=== PATIENT | male | born 2000 | race Caucasian/White ===

== ENCOUNTER 2021-09-21 22:09 | Emergency (ER) | payer OTHER ==
[2021-09-21 22:49] VITALS: BMI 32.5
[2021-09-21] MEDS ORDERED: MAG HYDROX/AL HYDROX/SIMETH -MYLANTA- ORAL SUSPENSION PO ONE (22:53)
[2021-09-21] MEDS ORDERED: FAMOTIDINE 20 MG/50 ML IVPB 20 MG/50 ML MG IVPB ONE (22:53)
[2021-09-21] MEDS ORDERED: SODIUM CHLORIDE 0.9% 1000 ML INFUS.BAG IV ONE (22:53)
[2021-09-21] MEDS ORDERED: ONDANSETRON 4 MG/2 ML VIAL IVPUSH ONE (23:08)
[2021-09-21] MEDS ORDERED: ACETAMINOPHEN INJECTION 100 ML IVPB ONE (23:45)
[2021-09-22 00:49] LABS: ALBUMIN 4.9 g/dl (3.4-5.0); CALCIUM 9.8 mg/dL (8.5-10.1)
[2021-09-22 00:52] LABS: CREATININE 1.2 mg/dL (0.55-1.3)
[2021-09-22 00:55] LABS: BILIRUBIN,TOTAL 0.5 mg/dL (0.2-1); TOT PROT 8.4 g/dl (6.4-8.2)
[2021-09-22 00:57] LABS: BASO % 0.2 % (0-2.0); EOS % 0.3 % (0-4.5); HEMATOCRIT 41.9 % (35.4-49); HEMOGLOBIN 14.1 GM/dL (11.7-16.9); LYMPH % 5.3 % (8-40); MCH 29.9 pg (25.7-33.7); MCHC 33.7 g/dl (32.0-35.9); MEAN CELL VOLUME 88.7 fl (80-96); MEAN PLT VOLUME 10.2 fl (7.5-11.1); MONO % 3.3 % (3.8-10.2); NEUT % 90.9 % (42.8-82.8); PLATELET COUNT 242 10^3/uL (134-434); RBC 4.72 M/mm3 (4.00-5.60); RDW 13.4 % (11.9-15.9); WHITE BLOOD COUNT 17.3 K/mm3 (4.0-10.0)
[2021-09-22 03:21] VITALS: BP 145/80; PULSE 82
== END 2021-09-22 03:26 | disposition home or self-care (01) ==
LOC: JER 22:09 → EDBD 22:09 → JER 09-22 03:26
PROC: 3E033NZ Introduction of Analgesics, Hypnotics, Sedatives into Peripheral Vein, Percutaneous Approach (ICD-10-PCS; principal; 2021-09-21)
PROC: 3E033GC Introduction of Other Therapeutic Substance into Peripheral Vein, Percutaneous Approach (ICD-10-PCS; 2021-09-21)
DX: R11.2 Nausea with vomiting, unspecified (principal); R10.9 Unspecified abdominal pain; F12.20 Cannabis dependence, uncomplicated
CPT/HCPCS: 36415; 80053; 83690; 85025; 93005; 93010; 99284-25

== ENCOUNTER 2022-02-28 12:46 | Day surgery (SDC) | payer OTHER ==
[2022-02-27 12:06] VITALS: BMI 32.5
[2022-02-28] MEDS ORDERED: PROPOFOL 20 ML ONE (13:39)
[2022-02-28 14:11] VITALS: BP 100/54; PULSE 70; TEMP 97.8
== END 2022-02-28 14:23 | disposition home or self-care (01) ==
LOC: FASU 12:46
PROVIDERS: ATTEND Internal Medicine Gastroenterology
PROC: 0DB68ZX Excision of Stomach, Via Natural or Artificial Opening Endoscopic, Diagnostic (ICD-10-PCS; 2022-02-28)
PROC: 0DB48ZX Excision of Esophagogastric Junction, Via Natural or Artificial Opening Endoscopic, Diagnostic (ICD-10-PCS; 2022-02-28)
PROC: 0DB98ZX Excision of Duodenum, Via Natural or Artificial Opening Endoscopic, Diagnostic (ICD-10-PCS; principal; 2022-02-28 13:36)
DX: K29.50 Unspecified chronic gastritis without bleeding (principal); K20.90 Esophagitis, unspecified without bleeding; R10.13 Epigastric pain
CPT/HCPCS: 88305-TC

== ENCOUNTER 2023-05-19 13:51 | Emergency (ER) | payer OTHER ==
[2023-05-19 14:00] VITALS: RESP 20; TEMP 98.3; BMI 35.3
[2023-05-19] MEDS ORDERED: ONDANSETRON *ODT* 4 MG TABLET SL ONE (15:14)
[2023-05-19] MEDS ORDERED: SODIUM CHLORIDE 0.9% 1000 ML INFUS.BAG IV ONE (15:15)
[2023-05-19] MEDS ORDERED: ONDANSETRON *ODT* 4 MG TABLET ONE (15:33)
[2023-05-19 16:54] LABS: BASO % 0.3 % (0-2.0); EOS % 0.5 % (0-4.5); HEMATOCRIT 44.8 % (35.4-49); HEMOGLOBIN 14.8 GM/dL (11.7-16.9); LYMPH % 13.7 % (8-40); MCH 29.2 pg (25.7-33.7); MCHC 32.9 g/dl (32.0-35.9); MEAN CELL VOLUME 88.8 fl (80-96); MEAN PLT VOLUME 10.4 fl (7.5-11.1); MONO % 7.9 % (3.8-10.2); NEUT % 77.6 % (42.8-82.8); PLATELET COUNT 263 10^3/uL (134-434); RBC 5.05 M/mm3 (4.00-5.60); RDW 13.5 % (11.9-15.9); WHITE BLOOD COUNT 11.7 K/mm3 (4.0-10.0)
[2023-05-19 17:02] LABS: POTASSIUM 3.8 mmol/L (3.5-5.1)
[2023-05-19 17:04] LABS: CALCIUM 10.3 mg/dL (8.5-10.1)
[2023-05-19 17:05] LABS: ALBUMIN 4.5 g/dl (3.4-5.0); BLOOD UREA NITROGEN 8.6 mg/dL (7-18)
[2023-05-19 17:09] LABS: BILIRUBIN,TOTAL 0.9 mg/dL (0.2-1)
[2023-05-19 17:55] VITALS: BP 139/76; PULSE 56
[2023-05-19 18:00] LABS: EPI CELLS 22 /uL (0-25.1); HYALINE CASTS 7 /uL (0-3.1); URINE APPEARANCE CLEAR; URINE BACTERIA 15 /uL (0-1359); URINE BILIRUBIN 1+ (NEGATIVE); URINE COLOR DK YELLOW; URINE GLUCOSE (UA) NEGATIVE (NEGATIVE); URINE KETONE 3+ (NEGATIVE); URINE LEUK ESTERASE NEGATIVE (NEGATIVE); URINE NITRITE NEGATIVE (NEGATIVE); URINE PROTEIN 1+ (NEGATIVE); URINE RBC 16 /uL (0-23.9); URINE WBC 49 /uL (0-25.8)
== END 2023-05-19 19:12 | disposition home or self-care (01) ==
LOC: JER 13:51
DX: R11.2 Nausea with vomiting, unspecified (principal); R53.83 Other fatigue; F12.988 Cannabis use, unspecified with other cannabis-induced disorder
CPT/HCPCS: 36415; 80053; 80178; 81003; 85025; 99283-25; Q0162

== ENCOUNTER 2023-10-05 12:48 | Emergency (ER) | payer OTHER ==
[2023-10-05 13:15] VITALS: BP 172/83; PULSE 77; RESP 19; TEMP 98.5; BMI 35.9
[2023-10-05] MEDS ORDERED: ACETAMINOPHEN 1000 MG/100 ML BAG IVPB ONE (14:34)
[2023-10-05] MEDS ORDERED: METOCLOPRAMIDE HCL INJECTION 10 MG/2 ML VIAL IVPUSH ONE (14:34)
[2023-10-05] MEDS ORDERED: LACTATED RINGERS SOLUTION 1000 ML INFUS.BAG IV ONE (14:34)
[2023-10-05] MEDS ORDERED: METOCLOPRAMIDE HCL INJECTION 10 MG/2 ML VIAL ONE (14:39)
[2023-10-05] MEDS ORDERED: ACETAMINOPHEN INJECTION 100 ML IVPB ONE (14:39)
[2023-10-05] MEDS ORDERED: FAMOTIDINE 20 MG/50 ML IVPB 20 MG/50 ML MG IVPB ONE ×2 (14:39→16:42)
[2023-10-05 15:11] LABS: BASO % 0.3 % (0-2.0); EOS % 0.8 % (0-4.5); HEMATOCRIT 48.6 % (35.4-49); HEMOGLOBIN 15.8 GM/dL (11.7-16.9); LYMPH % 12.4 % (8-40); MCH 28.6 pg (25.7-33.7); MCHC 32.5 g/dl (32.0-35.9); MEAN CELL VOLUME 88.1 fl (80-96); MEAN PLT VOLUME 9.4 fl (7.5-11.1); NEUT % 79.5 % (42.8-82.8); PLATELET COUNT 272 10^3/uL (134-434); RBC 5.51 M/mm3 (4.00-5.60); RDW 13.2 % (11.9-15.9); WHITE BLOOD COUNT 12.9 K/mm3 (4.0-10.0)
[2023-10-05 15:21] LABS: POTASSIUM 3.4 mmol/L (3.5-5.1)
[2023-10-05 15:24] LABS: CALCIUM 10.3 mg/dL (8.5-10.1)
[2023-10-05 15:25] LABS: ALBUMIN 4.7 g/dl (3.4-5.0); BLOOD UREA NITROGEN 6.3 mg/dL (7-18); MAGNESIUM 2.4 mg/dL (1.8-2.4)
[2023-10-05 15:28] LABS: CREATININE 1.1 mg/dL (0.55-1.3)
[2023-10-05 15:29] LABS: BILIRUBIN,TOTAL 0.9 mg/dL (0.2-1); TOT PROT 8.3 g/dl (6.4-8.2)
[2023-10-05] MEDS ORDERED: ONDANSETRON 4 MG/2 ML VIAL IVPUSH ONE (16:16)
[2023-10-05] MEDS ORDERED: ONDANSETRON 4 MG/2 ML VIAL ONE (16:42)
== END 2023-10-05 17:36 | disposition home or self-care (01) ==
LOC: JER 12:48
PROC: 3E033GC Introduction of Other Therapeutic Substance into Peripheral Vein, Percutaneous Approach (ICD-10-PCS; principal; 2023-10-05)
PROC: 3E033NZ Introduction of Analgesics, Hypnotics, Sedatives into Peripheral Vein, Percutaneous Approach (ICD-10-PCS; 2023-10-05)
PROC: 3E033GC Introduction of Other Therapeutic Substance into Peripheral Vein, Percutaneous Approach (ICD-10-PCS; 2023-10-05)
PROC: 3E033GC Introduction of Other Therapeutic Substance into Peripheral Vein, Percutaneous Approach (ICD-10-PCS; 2023-10-05)
DX: R11.2 Nausea with vomiting, unspecified (principal); R10.13 Epigastric pain
CPT/HCPCS: 36415; 80053; 83690; 83735; 85025; 99284-25

== ENCOUNTER 2023-10-08 12:31 | Emergency (ER) | payer OTHER ==
[2023-10-08 12:41] VITALS: BP 134/79; PULSE 75; RESP 18; TEMP 98; BMI 35.9
[2023-10-08] MEDS ORDERED: SODIUM CHLORIDE 1,000 ML IV STA (13:27)
[2023-10-08] MEDS ORDERED: ONDANSETRON 4 MG/2 ML VIAL IVPUSH ONE (13:27)
[2023-10-08] MEDS ORDERED: ONDANSETRON 4 MG/2 ML VIAL ONE (13:29)
[2023-10-08 14:02] LABS: BASO % 0.4 % (0-2.0); EOS % 0.9 % (0-4.5); LYMPH % 14.4 % (8-40); MCH 28.6 pg (25.7-33.7); MCHC 32.6 g/dl (32.0-35.9); MEAN CELL VOLUME 87.8 fl (80-96); MONO % 9.7 % (3.8-10.2); NEUT % 74.6 % (42.8-82.8); PLATELET COUNT 245 10^3/uL (134-434); RBC 5.24 M/mm3 (4.00-5.60); RDW 13.3 % (11.9-15.9); WHITE BLOOD COUNT 12.3 K/mm3 (4.0-10.0)
[2023-10-08 14:07] LABS: EPI CELLS 25 /uL (0-25.1); HYALINE CASTS 7 /uL (0-3.1); PH,URINE 5.5 (5.0-8.0); URINE APPEARANCE CLOUDY; URINE BACTERIA 43 /uL (0-1359); URINE BILIRUBIN 1+ (NEGATIVE); URINE COLOR DK YELLOW; URINE GLUCOSE (UA) NEGATIVE (NEGATIVE); URINE KETONE TRACE (NEGATIVE); URINE LEUK ESTERASE TRACE (NEGATIVE); URINE NITRITE NEGATIVE (NEGATIVE); URINE PROTEIN 1+ (NEGATIVE); URINE RBC 25 /uL (0-23.9); URINE WBC 59 /uL (0-25.8)
[2023-10-08 14:15] LABS: POTASSIUM 3.1 mmol/L (3.5-5.1)
[2023-10-08 14:17] LABS: ALBUMIN 4.5 g/dl (3.4-5.0); CALCIUM 9.9 mg/dL (8.5-10.1)
[2023-10-08 14:22] LABS: BILIRUBIN,TOTAL 0.8 mg/dL (0.2-1); TOT PROT 7.7 g/dl (6.4-8.2)
[2023-10-08 14:26] LABS: BLOOD UREA NITROGEN 7.1 mg/dL (7-18)
== END 2023-10-08 17:54 | disposition home or self-care (01) ==
LOC: JER 12:31
PROC: 3E033GC Introduction of Other Therapeutic Substance into Peripheral Vein, Percutaneous Approach (ICD-10-PCS; principal; 2023-10-08)
PROC: 3E0337Z Introduction of Electrolytic and Water Balance Substance into Peripheral Vein, Percutaneous Approach (ICD-10-PCS; 2023-10-08)
DX: K52.9 Noninfective gastroenteritis and colitis, unspecified (principal); R11.2 Nausea with vomiting, unspecified; R63.8 Other symptoms and signs concerning food and fluid intake; R10.9 Unspecified abdominal pain
CPT/HCPCS: 36415; 74177-TC; 80053; 81003; 83690; 85025; 87086; 99285-25; Q9967

== ENCOUNTER 2024-02-19 22:26 | Observation (INO) | payer OTHER ==
[2024-02-19 22:42] VITALS: BMI 35.9
[2024-02-19] MEDS ORDERED: HALOPERIDOL LACTATE 5 MG/ML ONE (23:57)
[2024-02-19] MEDS ORDERED: ACETAMINOPHEN INJECTION 100 ML IVPB ONE (23:58)
[2024-02-19] MEDS ORDERED: FAMOTIDINE 20 MG/50 ML IVPB 20 MG/50 ML MG IVPB ONE (23:58)
[2024-02-20 00:01] LABS: BASO % 0.5 % (0-2.0); EOS % 0.8 % (0-4.5); HEMATOCRIT 41.3 % (35.4-49); HEMOGLOBIN 13.7 GM/dL (11.7-16.9); LYMPH % 13.8 % (8-40); MCH 29.2 pg (25.7-33.7); MCHC 33.2 g/dl (32.0-35.9); MEAN CELL VOLUME 87.9 fl (80-96); MEAN PLT VOLUME 9.4 fl (7.5-11.1); NEUT % 75.9 % (42.8-82.8); PLATELET COUNT 213 10^3/uL (134-434); RDW 13.7 % (11.9-15.9); WHITE BLOOD COUNT 15.2 K/mm3 (4.0-10.0)
[2024-02-20] MEDS: FAMOTIDINE 20 MG/50 ML IVPB 20 MG/50 ML MG IVPB ONE (00:10)
[2024-02-20] MEDS: ACETAMINOPHEN 1000 MG/100 ML BAG IVPB ONE (00:10)
[2024-02-20] MEDS: SODIUM CHLORIDE 0.9% 500 ML INFUS.BAG IV ONE (00:10)
[2024-02-20] MEDS: HALOPERIDOL LACTATE 5 MG/ML IVPUSH ONE (00:10)
[2024-02-20 00:20] LABS: ALBUMIN 4.1 g/dl (3.4-5.0); BLOOD UREA NITROGEN 7.4 mg/dL (7-18); CALCIUM 9.2 mg/dL (8.5-10.1); MAGNESIUM 2.1 mg/dL (1.8-2.4)
[2024-02-20 00:23] LABS: CREATININE 0.9 mg/dL (0.55-1.3); PHOSPHOROUS 3.1 mg/dL (2.5-4.9)
[2024-02-20 00:25] LABS: BILIRUBIN,TOTAL 0.8 mg/dL (0.2-1); TOT PROT 7.1 g/dl (6.4-8.2)
[2024-02-20] MEDS ORDERED: MAGNESIUM SULFATE IN WATER 2 GM/50 ML IVPB IVPB ONE (01:34)
[2024-02-20] MEDS: MAGNESIUM SULF 50% (8.12 MEQ/2 ML-1 GM VIAL) IVPB ONE (01:34)
[2024-02-20] MEDS: KCL 10 MEQ IVPB 10 MEQ/100 ML INFUS.BAG IVPB SCH (04:20)
[2024-02-20] MEDS ORDERED: KCL 10 MEQ IVPB 10 MEQ/100 ML INFUS.BAG IVPB ONE ×2 (04:20→05:05)
[2024-02-20] MEDS: D5-1/2NS+20 MEQ KCL - 20 MEQ/1,000 ML INFUS.BAG IV SCH (06:05)
[2024-02-20] MEDS ORDERED: ACETAMINOPHEN 1000 MG/100 ML BAG IVPB PRN (06:40)
[2024-02-20] MEDS: TRIMETHOBENZAMIDE HCL 200MG/2ML INJ IM PRN (12:40)
[2024-02-20] MEDS: ONDANSETRON 4 MG/2 ML VIAL IVPUSH ONE (13:58)
[2024-02-20] MEDS: METOCLOPRAMIDE HCL 10 MG TABLET (FP) PO STA (18:12)
[2024-02-20] MEDS: ONDANSETRON 4 MG/2 ML VIAL IVPUSH PRN (19:40)
[2024-02-20 20:05] LABS: BASO % 0.5 % (0-2.0); EOS % 1.5 % (0-4.5); HEMATOCRIT 42.2 % (35.4-49); HEMOGLOBIN 13.9 GM/dL (11.7-16.9); LYMPH % 14.5 % (8-40); MCH 29.2 pg (25.7-33.7); MEAN CELL VOLUME 88.7 fl (80-96); MEAN PLT VOLUME 9.7 fl (7.5-11.1); NEUT % 75.5 % (42.8-82.8); PLATELET COUNT 212 10^3/uL (134-434); RBC 4.76 M/mm3 (4.00-5.60); RDW 13.7 % (11.9-15.9); WHITE BLOOD COUNT 13.4 K/mm3 (4.0-10.0)
[2024-02-20] MEDS: OLANZapine 10 MG TABLET PO SCH (21:52)
[2024-02-20] MEDS: LITHIUM CARBONATE 300 MG CAPSULE PO SCH (21:52)
[2024-02-21] MEDS ORDERED: ACETAMINOPHEN 325 MG TABLET (FP) PO PRN (06:40)
[2024-02-21 08:36] LABS: BASO % 0.3 % (0-2.0); EOS % 1.8 % (0-4.5); HEMATOCRIT 41.8 % (35.4-49); HEMOGLOBIN 14.3 GM/dL (11.7-16.9); LYMPH % 13.3 % (8-40); MCHC 34.3 g/dl (32.0-35.9); MEAN CELL VOLUME 87.5 fl (80-96); MONO % 8.5 % (3.8-10.2); NEUT % 76.1 % (42.8-82.8); PLATELET COUNT 211 10^3/uL (134-434); RBC 4.78 M/mm3 (4.00-5.60); RDW 13.2 % (11.9-15.9)
[2024-02-21 08:40] LABS: POTASSIUM 3.6 mmol/L (3.5-5.1)
[2024-02-21 08:42] LABS: CALCIUM 9.2 mg/dL (8.5-10.1)
[2024-02-21 08:43] LABS: BLOOD UREA NITROGEN 6.5 mg/dL (7-18)
[2024-02-21 08:46] LABS: CREATININE 0.9 mg/dL (0.55-1.3)
[2024-02-21] MEDS: amLODIPine BESYLATE 2.5 MG TABLET (FP) PO ONE (23:01)
[2024-02-22 09:32] LABS: BASO % 0.3 % (0-2.0); EOS % 1.8 % (0-4.5); HEMATOCRIT 43.5 % (35.4-49); HEMOGLOBIN 14.6 GM/dL (11.7-16.9); LYMPH % 12.9 % (8-40); MCH 29.6 pg (25.7-33.7); MCHC 33.6 g/dl (32.0-35.9); MEAN CELL VOLUME 88.1 fl (80-96); MONO % 6.4 % (3.8-10.2); NEUT % 78.6 % (42.8-82.8); PLATELET COUNT 215 10^3/uL (134-434); RBC 4.94 M/mm3 (4.00-5.60); RDW 13.1 % (11.9-15.9); WHITE BLOOD COUNT 13.1 K/mm3 (4.0-10.0)
[2024-02-22 09:49] LABS: POTASSIUM 3.7 mmol/L (3.5-5.1)
[2024-02-22 09:53] LABS: BLOOD UREA NITROGEN 6.5 mg/dL (7-18); CALCIUM 9.4 mg/dL (8.5-10.1)
[2024-02-22 09:57] LABS: CREATININE 0.9 mg/dL (0.55-1.3); TOT PROT 7.2 g/dl (6.4-8.2)
[2024-02-22 09:58] LABS: BILIRUBIN,TOTAL 0.6 mg/dL (0.2-1)
[2024-02-22] MEDS: amLODIPine BESYLATE 2.5 MG TABLET (FP) PO SCH (15:37)
[2024-02-23 07:26] LABS: BASO % 0.3 % (0-2.0); EOS % 2.2 % (0-4.5); HEMATOCRIT 45.6 % (35.4-49); HEMOGLOBIN 15.1 GM/dL (11.7-16.9); LYMPH % 14.1 % (8-40); MCH 29.3 pg (25.7-33.7); MEAN CELL VOLUME 88.8 fl (80-96); MEAN PLT VOLUME 9.7 fl (7.5-11.1); MONO % 6.7 % (3.8-10.2); NEUT % 76.7 % (42.8-82.8); PLATELET COUNT 223 10^3/uL (134-434); RBC 5.14 M/mm3 (4.00-5.60); RDW 13.4 % (11.9-15.9); WHITE BLOOD COUNT 12.4 K/mm3 (4.0-10.0)
[2024-02-23 07:43] LABS: CALCIUM 9.6 mg/dL (8.5-10.1)
[2024-02-23 07:44] LABS: BLOOD UREA NITROGEN 6.5 mg/dL (7-18)
[2024-02-23 07:47] LABS: CREATININE 0.9 mg/dL (0.55-1.3)
[2024-02-23 07:49] LABS: BILIRUBIN,TOTAL 0.6 mg/dL (0.2-1); TOT PROT 7.2 g/dl (6.4-8.2)
[2024-02-23 12:55] LABS: N-TERMINAL BNP 24.7 pg/ml (5-125)
[2024-02-23 15:18] VITALS: BP 152/74; PULSE 81; RESP 19; TEMP 99
== END 2024-02-23 18:09 | disposition home or self-care (01) ==
LOC: JER 22:26 → JERBED 02-20 05:00 → J6S 02-20 07:32 → J4W 02-22 18:27
PROVIDERS: ADMIT Internal Medicine; ATTEND Internal Medicine
PROC: 3E033NZ Introduction of Analgesics, Hypnotics, Sedatives into Peripheral Vein, Percutaneous Approach (ICD-10-PCS; principal; 2024-02-20)
PROC: 3E033GC Introduction of Other Therapeutic Substance into Peripheral Vein, Percutaneous Approach (ICD-10-PCS; 2024-02-20)
PROC: 3E0337Z Introduction of Electrolytic and Water Balance Substance into Peripheral Vein, Percutaneous Approach (ICD-10-PCS; 2024-02-20)
PROC: 3E023GC Introduction of Other Therapeutic Substance into Muscle, Percutaneous Approach (ICD-10-PCS; 2024-02-20)
DX: R11.2 Nausea with vomiting, unspecified (principal); E87.6 Hypokalemia; F31.9 Bipolar disorder, unspecified; D72.829 Elevated white blood cell count, unspecified; R00.1 Bradycardia, unspecified; F17.210 Nicotine dependence, cigarettes, uncomplicated
CPT/HCPCS: 0241U-QW; 36415; 76705-TC; 80048; 80053; 80178; 82550; 82553; 83036; 83690; 83735; 83880; 84100; 84443; 84484; 85025; 86140; 86618; 93005; 93010; 93306-TC; 96361; 96365; 96367; 96372; 96375; 96376; 99284-25; 99285-25; G0378; J0131

== ENCOUNTER 2024-06-01 09:49 | Emergency (ER) | payer OTHER ==
[2024-06-01 09:55] VITALS: BP 149/60; PULSE 53; RESP 18; TEMP 98.2; BMI 35.9
[2024-06-01] MEDS ORDERED: ONDANSETRON *ODT* 4 MG TABLET ONE (10:22)
[2024-06-01] MEDS: ONDANSETRON *ODT* 4 MG TABLET SL ONE (10:33)
== END 2024-06-01 10:45 | disposition home or self-care (01) ==
LOC: JER 09:49
DX: R11.2 Nausea with vomiting, unspecified (principal); E86.0 Dehydration
CPT/HCPCS: 99283-25; Q0162

== ENCOUNTER 2024-06-06 00:46 | Emergency (ER) | payer OTHER ==
[2024-06-06 00:52] VITALS: TEMP 98.9; BMI 34.7
[2024-06-06] MEDS ORDERED: ONDANSETRON 4 MG/2 ML VIAL ONE (02:51)
[2024-06-06] MEDS: SODIUM CHLORIDE 0.9% 500 ML INFUS.BAG IV ONE (02:56)
[2024-06-06] MEDS: ONDANSETRON 4 MG/2 ML VIAL IVPUSH ONE (02:56)
[2024-06-06 03:11] LABS: BASO % 0.4 % (0-2.0); EOS % 0.7 % (0-4.5); HEMATOCRIT 40.5 % (35.4-49); HEMOGLOBIN 13.6 GM/dL (11.7-16.9); LYMPH % 9.6 % (8-40); MCH 29.3 pg (25.7-33.7); MCHC 33.6 g/dl (32.0-35.9); MEAN CELL VOLUME 87.3 fl (80-96); MEAN PLT VOLUME 9.7 fl (7.5-11.1); NEUT % 85.3 % (42.8-82.8); PLATELET COUNT 207 10^3/uL (134-434); RBC 4.64 M/mm3 (4.00-5.60); RDW 13.7 % (11.9-15.9); WHITE BLOOD COUNT 11.9 K/mm3 (4.0-10.0)
[2024-06-06 03:31] LABS: POTASSIUM 4.1 mmol/L (3.5-5.1)
[2024-06-06 03:33] LABS: ALBUMIN 4.3 g/dl (3.4-5.0); BLOOD UREA NITROGEN 7.5 mg/dL (7-18); CALCIUM 9.4 mg/dL (8.5-10.1)
[2024-06-06 03:37] LABS: CREATININE 0.9 mg/dL (0.55-1.3)
[2024-06-06 03:38] LABS: BILIRUBIN,TOTAL 0.5 mg/dL (0.2-1)
[2024-06-06 03:39] LABS: TOT PROT 7.1 g/dl (6.4-8.2)
[2024-06-06 04:53] VITALS: BP 120/53; PULSE 62; RESP 18
== END 2024-06-06 04:59 | disposition home or self-care (01) ==
LOC: JER 00:46
PROC: 3E033GC Introduction of Other Therapeutic Substance into Peripheral Vein, Percutaneous Approach (ICD-10-PCS; principal; 2024-06-06)
DX: R11.2 Nausea with vomiting, unspecified (principal); R10.13 Epigastric pain
CPT/HCPCS: 36415; 80053; 83690; 85025; 99284-25

== ENCOUNTER 2024-06-08 23:55 | Emergency (ER) | payer OTHER ==
[2024-06-09 00:06] VITALS: BP 160/78; PULSE 57; RESP 18; TEMP 98.4; BMI 34.7
[2024-06-09] MEDS ORDERED: METOCLOPRAMIDE HCL INJECTION 10 MG/2 ML VIAL ONE (00:39)
[2024-06-09] MEDS ORDERED: MAG HYDROX/AL HYDROX/SIMETH 30 ML UNIT-DOSE CUP ONE (00:39)
[2024-06-09] MEDS ORDERED: FAMOTIDINE 20 MG/50 ML IVPB 20 MG/50 ML MG IVPB ONE (00:40)
[2024-06-09] MEDS: FAMOTIDINE 20 MG/50 ML IVPB 20 MG/50 ML MG IVPB ONE (01:09)
[2024-06-09] MEDS: LACTATED RINGERS SOLUTION 1000 ML INFUS.BAG IV ONE (01:09)
[2024-06-09] MEDS: MAG HYDROX/AL HYDROX/SIMETH 30 ML UNIT-DOSE CUP PO ONE (01:09)
[2024-06-09 01:26] LABS: BASO % 0.4 % (0-2.0); EOS % 1.1 % (0-4.5); HEMATOCRIT 42.6 % (35.4-49); HEMOGLOBIN 14.3 GM/dL (11.7-16.9); LYMPH % 15.8 % (8-40); MCH 29.3 pg (25.7-33.7); MCHC 33.6 g/dl (32.0-35.9); MEAN CELL VOLUME 87.4 fl (80-96); MEAN PLT VOLUME 9.4 fl (7.5-11.1); MONO % 6.9 % (3.8-10.2); NEUT % 75.8 % (42.8-82.8); PLATELET COUNT 240 10^3/uL (134-434); RBC 4.87 M/mm3 (4.00-5.60); RDW 13.6 % (11.9-15.9); WHITE BLOOD COUNT 11.2 K/mm3 (4.0-10.0)
[2024-06-09] MEDS: METOCLOPRAMIDE HCL INJECTION 10 MG/2 ML VIAL IVPB ONE (01:32)
[2024-06-09 01:57] LABS: POTASSIUM 3.8 mmol/L (3.5-5.1)
[2024-06-09 02:01] LABS: ALBUMIN 4.3 g/dl (3.4-5.0); MAGNESIUM 2.1 mg/dL (1.8-2.4)
[2024-06-09 02:03] LABS: CREATININE 1.2 mg/dL (0.55-1.3)
[2024-06-09 02:05] LABS: BILIRUBIN,TOTAL 0.6 mg/dL (0.2-1); TOT PROT 7.4 g/dl (6.4-8.2)
[2024-06-09] MEDS ORDERED: PROCHLORPERAZINE INJECTION 10 MG/2 ML VIAL ONE (02:20)
[2024-06-09] MEDS: PROCHLORPERAZINE INJECTION 10 MG/2 ML VIAL IVPB ONE (02:42)
== END 2024-06-09 07:10 | disposition home or self-care (01) ==
LOC: JER 23:55
PROC: 3E033GC Introduction of Other Therapeutic Substance into Peripheral Vein, Percutaneous Approach (ICD-10-PCS; principal; 2024-06-09)
PROC: 3E033GC Introduction of Other Therapeutic Substance into Peripheral Vein, Percutaneous Approach (ICD-10-PCS; 2024-06-09)
PROC: 3E033GC Introduction of Other Therapeutic Substance into Peripheral Vein, Percutaneous Approach (ICD-10-PCS; 2024-06-09)
DX: R11.2 Nausea with vomiting, unspecified (principal); R63.8 Other symptoms and signs concerning food and fluid intake; R51.9 Headache, unspecified
CPT/HCPCS: 36415; 70450-TC; 80053; 83690; 83735; 85025; 99284-25

== ENCOUNTER 2024-07-01 11:30 | Day surgery (SDC) | payer OTHER ==
[2024-06-23 14:11] VITALS: BMI 35.9
[2024-07-01 12:24] VITALS: TEMP 97.8
[2024-07-01 12:35] VITALS: BP 124/71; PULSE 71; RESP 18
== END 2024-07-01 12:36 | disposition home or self-care (01) ==
LOC: FASU-ENDO 11:30
PROVIDERS: ATTEND Internal Medicine Gastroenterology
PROC: 0DB68ZX Excision of Stomach, Via Natural or Artificial Opening Endoscopic, Diagnostic (ICD-10-PCS; 2024-07-01)
PROC: 0DB48ZX Excision of Esophagogastric Junction, Via Natural or Artificial Opening Endoscopic, Diagnostic (ICD-10-PCS; 2024-07-01)
PROC: 0DB98ZX Excision of Duodenum, Via Natural or Artificial Opening Endoscopic, Diagnostic (ICD-10-PCS; principal; 2024-07-01 12:01)
DX: K29.50 Unspecified chronic gastritis without bleeding (principal); K21.00 Gastro-esophageal reflux disease with esophagitis, without bleeding; R10.13 Epigastric pain
CPT/HCPCS: 88305-TC; 88342-TC

== ENCOUNTER 2024-10-03 13:18 | Emergency (ER) | payer OTHER ==
[2024-10-03 14:01] VITALS: BP 133/82; PULSE 89; RESP 16; TEMP 98.6; BMI 34.7
[2024-10-03] MEDS ORDERED: ACETAMINOPHEN INJECTION 100 ML ONE (15:03)
[2024-10-03] MEDS ORDERED: ONDANSETRON 4 MG/2 ML VIAL ONE (15:04)
[2024-10-03] MEDS: ONDANSETRON 4 MG/2 ML VIAL IVPUSH ONE (15:13)
[2024-10-03] MEDS: ACETAMINOPHEN 1000 MG/100 ML BAG IVPB ONE (15:13)
[2024-10-03 15:23] LABS: BASO % 0.4 % (0-2.0); EOS % 2.7 % (0-4.5); HEMOGLOBIN 14.8 GM/dL (11.7-16.9); LYMPH % 15.9 % (8-40); MCH 28.9 pg (25.7-33.7); MCHC 32.9 g/dl (32.0-35.9); MEAN CELL VOLUME 87.6 fl (80-96); MEAN PLT VOLUME 9.2 fl (7.5-11.1); MONO % 7.7 % (3.8-10.2); NEUT % 73.3 % (42.8-82.8); PLATELET COUNT 266 10^3/uL (134-434); RBC 5.14 M/mm3 (4.00-5.60); RDW 13.9 % (11.9-15.9); WHITE BLOOD COUNT 13.1 K/mm3 (4.0-10.0)
[2024-10-03 15:42] LABS: POTASSIUM 4.5 mmol/L (3.5-5.1)
[2024-10-03 15:46] LABS: ALBUMIN 4.4 g/dl (3.4-5.0); CALCIUM 10.5 mg/dL (8.5-10.1)
[2024-10-03 15:47] LABS: BLOOD UREA NITROGEN 7.6 mg/dL (7-18)
[2024-10-03 15:50] LABS: CREATININE 0.9 mg/dL (0.55-1.3)
[2024-10-03 15:51] LABS: BILIRUBIN,TOTAL 0.6 mg/dL (0.2-1); TOT PROT 7.8 g/dl (6.4-8.2)
[2024-10-03] MEDS ORDERED: FAMOTIDINE 20 MG TABLET ONE (16:24)
[2024-10-03] MEDS ORDERED: MAG HYDROX/AL HYDROX/SIMETH 30 ML UNIT-DOSE CUP ONE (16:24)
[2024-10-03] MEDS: MAG HYDROX/AL HYDROX/SIMETH 30 ML UNIT-DOSE CUP PO ONE (16:29)
[2024-10-03] MEDS: FAMOTIDINE 20 MG TABLET PO ONE (16:29)
== END 2024-10-03 18:24 | disposition home or self-care (01) ==
LOC: JER 13:18
PROC: 3E033NZ Introduction of Analgesics, Hypnotics, Sedatives into Peripheral Vein, Percutaneous Approach (ICD-10-PCS; principal; 2024-10-03)
PROC: 3E033GC Introduction of Other Therapeutic Substance into Peripheral Vein, Percutaneous Approach (ICD-10-PCS; 2024-10-03)
DX: R10.13 Epigastric pain (principal); K52.9 Noninfective gastroenteritis and colitis, unspecified; R11.10 Vomiting, unspecified
CPT/HCPCS: 36415; 74177-TC; 80053; 83690; 85025; 86850; 86900; 86901; 99285-25; J0131; Q9967